=== PATIENT | female | born 1955 | race Caucasian/White ===

== ENCOUNTER 2020-10-14 10:03 | Emergency (ER) | payer BC ==
[~2020-10-14] VITALS: Ht 165.1 cm; Wt 72.7 kg
[2020-10-14] MEDS ORDERED: IBUPROFEN 600 MG TABLET. PO ONE (10:15)
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
--- NOTE | 2020-10-14 11:06 | RAD ---
CT THORACIC SPINE WO History: Reason: fall, back pain / Spl. Instructions: / History: Comparison: None. Technique: Noncontrast CT imaging was performed of the thoracic. Coronal and sagittal reconstructions were performed. Exposure: One or more of the following individualized dose reduction techniques were utilized for thi s examination: 1. Automated exposure control 2. Adjustment of the mA and/or kV according to patient size 3. Use of iterative reconstruction technique. Findings: Postoperative changes left thyroidectomy. Calcified mediastinal lymph nodes and calcified pulmonary n odules, likely prior granulomatous disease. Nodular density within the right breast. Right middle lobe linear atelectasis or scarring. Linear lucency through the C7 anterior and inferior vertebral body with compression deformity 50 perc ent height loss centrally. No retropulsion. Normal alignment of the thoracic spine. Normal thoracic vertebral body height. Mild degenerative disc changes. No significant canal narrowing. No significant neuroforaminal narrowi ng. Impression: 1. Acute C7 compression fracture. If concern for ligament injury, MRI can further evaluate. 2. Right breast nodular density. Recommend correlation with mammogram and repeat mammogram if indica felicita. Electronically signed by: Brian Wilson DO (10/14/2020 11:03 AM) [id number]
--- NOTE | 2020-10-14 12:05 | RAD ---
ADDENDUM #1 Addendum: There are is no appreciable callus formation at the C7 fractures. Fracture lines are well delineated as to be expected of an acute or subacute fracture. No significant soft tissue swelling about the C7 vertebra is seen. Discussed with ED provider on 10/14/2020 at 12:29 PM. Electronically signed by: Bret Meehan MD (10/14/2020 12:31 PM) [id number] ORIGINAL REPORT Examination: CT CERVICAL SPINE WO History: Reason: c7 fracture / Spl. Instructions: / History: Comparison/Correlation: Thoracic spine CT performed earlier on the same day Findings: Axial images of cervical spine were obtained without contrast. Sagittal and coronal reforma tted images were provided. Degenerative spurring and remodeling noted at the atlantoaxial joint. C2-3: Unremarkable C3-4: Unremarkable C4-5: Mild disc space narrowing. Minimal anterolisthesis of C3/C4. C5-6: Slight central disc protrusion. C6-7: Slight central disc protrusion. C7 vertebral body height loss of 25 percent to 50 percent is present. Compression fracture is noted. No retropulsion of fracture fragments. C7-T1 disc space is adequate. Neural foramina are patent without bony encroachment. There is developmental fusion of the right C4-5 facet joint. No significant spinal canal stenosis. Left thyroidectomy along with resection of the left thyroid ist hmus noted with associated surgical clips present. Impression: C7 vertebral body compression fractures with minimal displacement. No retropulsion into the spinal ca nal. No significant malalignment. Degenerative changes of cervical spine. PQRS Compliance Statement: One or more of the following individualized dose reduction techniques were utilized for this examinat ion: 1. Automated exposure control 2. Adjustment of the mA and/or kV according to patient size 3. Use of iterative reconstruction technique Electronically signed by: Bret Meehan MD (10/14/2020 12:02 PM) [id number]
[2020-10-14 12:53] VITALS: BP 124/72
[2020-10-14] MEDS ORDERED: IBUP800T19 PO (14:13)
== END 2020-10-14 14:16 | disposition home or self-care (01) ==
LOC: ER 10:03
DX: S12.600A Unspecified displaced fracture of seventh cervical vertebra, initial encounter for closed fracture (principal); Z90.89 Acquired absence of other organs; Z90.710 Acquired absence of both cervix and uterus; Z88.0 Allergy status to penicillin; Z88.2 Allergy status to sulfonamides; Z88.5 Allergy status to narcotic agent; W00.0XXA Fall on same level due to ice and snow, initial encounter; Y93.89 Activity, other specified; Y92.89 Other specified places as the place of occurrence of the external cause; Y99.8 Other external cause status
CPT/HCPCS: 72125; 72128; 99285